=== PATIENT | female | born 1995 | race Hispanic/Latino ===

== ENCOUNTER 2024-10-19 11:16 | Emergency (ER) | payer OTHER ==
[~2024-10-19] VITALS: Ht 149.9 cm; Wt 60.4 kg
[2024-10-19] MEDS ORDERED: SYNT88TA2 PO (11:31)
[2024-10-19 11:56] LABS: BASO % 0.6 % (0.0-1.0); EOS # 0.1 10^3/uL (0.0-0.5); EOS % 0.8 % (0.0-3.0); HEMATOCRIT 42.8 % (36.0-47.0); HEMOGLOBIN 14.2 g/dl (12.0-15.5); LYMPH # 2.1 10^3/uL (1.5-5.0); LYMPH % 32.4 % (24.0-44.0); MEAN CORPUSCULAR HEMOGLOBIN 29.9 pg (27.0-33.0); MEAN CORPUSCULAR HGB CONC 33.2 g/dl (32.0-36.5); MEAN CORPUSCULAR VOLUME 90.1 fl (80.0-96.0); MONO # 0.4 10^3/uL (0.0-0.8); MONO % 6.6 % (2.0-8.0); NEUTROPHILS # 3.8 10^3/uL (1.5-8.5); NEUTROPHILS % 59.4 % (36.0-66.0); PLATELET COUNT, AUTOMATED 346 10^3/uL (150-450); RED BLOOD COUNT 4.75 10^6/uL (4.00-5.40); WHITE BLOOD COUNT 6.4 10^3/uL (4.0-10.0)
[2024-10-19 12:21] LABS: CK-MB VALUE MASS < 1.0 NG/ML (<3.6); LIPASE 27 U/L (12-53)
[2024-10-19 12:23] LABS: CPK CREATINE PHOSPHOKINASE 47 U/L (34-145); MB/CK RELATIVE INDEX 2.12 (< OR =4)
[2024-10-19 12:24] LABS: ALBUMIN 3.6 G/DL (3.2-5.2); ALKALINE PHOSPHATASE 92 U/L (35-104); ALT/SGPT 15 U/L (7.0-40); AST/SGOT 9 U/L (<34); BILIRUBIN,DIRECT 0.1 MG/DL (<0.4); BILIRUBIN,TOTAL 0.5 MG/DL (0.3-1.2); BLOOD UREA NITROGEN 9 MG/DL (9-23); CALCIUM LEVEL 9.8 MG/DL (8.5-10.1); CARBON DIOXIDE LEVEL 31 MMOL/L (20-31); CHLORIDE LEVEL 105 MMOL/L (98-107); CREATININE FOR GFR 0.68 MG/DL (0.55-1.30); GLOMERULAR FILTRATION RATE > 60.0 (>60); GLUCOSE, FASTING 78 MG/DL (60-100); POTASSIUM SERUM 4.2 MMOL/L (3.5-5.1); SODIUM LEVEL 142 MMOL/L (136-145); TOTAL PROTEIN 7.2 G/DL (5.7-8.2)
[2024-10-19 12:39] LABS: HCG, SERUM QUALITATIVE NEGATIVE (NEGATIVE)
[2024-10-19] MEDS: KETOROLAC 30 MG/ML 1ML VIAL IV ONE (16:35)
[2024-10-19 16:43] LABS: CK-MB VALUE MASS < 1.0 NG/ML (<3.6)
[2024-10-19 16:44] LABS: CPK CREATINE PHOSPHOKINASE 37 U/L (34-145)
[2024-10-19] MEDS ORDERED: IBUP-1022 PO (17:51)
[2024-10-19 18:13] VITALS: BP 106/73; TEMP 98.6; O2SAT 96
== END 2024-10-19 18:16 | disposition home or self-care (01) ==
LOC: M ED 11:16
DX: M94.0 Chondrocostal junction syndrome [Tietze] (principal)
CPT/HCPCS: 71046; 80048; 80076; 82550; 82553; 83690; 83735; 84484; 84702; 84703; 85025; 85379; 87486; 87581; 87633; 87798; 93005; 93971; 96374; 99284; J1885

== ENCOUNTER 2024-11-16 13:12 | Emergency (ER) | payer OTHER ==
[~2024-11-16] VITALS: Ht 149.9 cm; Wt 60.0 kg
[~2024-11-16 13:12] MED LIST: IBUP-1022 PO; SYNT88TA2 PO
[2024-11-16] MEDS ORDERED: IBUP-1022 PO (13:47)
[2024-11-16 13:57] LABS: HEMATOCRIT 40.8 % (36.0-47.0); HEMOGLOBIN 13.8 g/dl (12.0-15.5); MEAN CORPUSCULAR HEMOGLOBIN 30.5 pg (27.0-33.0); MEAN CORPUSCULAR HGB CONC 33.8 g/dl (32.0-36.5); MEAN CORPUSCULAR VOLUME 90.1 fl (80.0-96.0); PLATELET COUNT, AUTOMATED 331 10^3/uL (150-450); RED BLOOD COUNT 4.53 10^6/uL (4.00-5.40); WHITE BLOOD COUNT 7.4 10^3/uL (4.0-10.0)
[2024-11-16 14:20] LABS: ALBUMIN 3.4 G/DL (3.2-5.2); ALKALINE PHOSPHATASE 99 U/L (35-104); ALT/SGPT 20 U/L (7.0-40); AST/SGOT 16 U/L (<34); BILIRUBIN,DIRECT 0.1 MG/DL (<0.4); BILIRUBIN,TOTAL 0.4 MG/DL (0.3-1.2); BLOOD UREA NITROGEN 12 MG/DL (9-23); CALCIUM LEVEL 9.4 MG/DL (8.5-10.1); CARBON DIOXIDE LEVEL 28 MMOL/L (20-31); CHLORIDE LEVEL 105 MMOL/L (98-107); CREATININE FOR GFR 0.71 MG/DL (0.55-1.30); GLOMERULAR FILTRATION RATE > 90.0 (>60); GLUCOSE, FASTING 90 MG/DL (60-100); POTASSIUM SERUM 4.4 MMOL/L (3.5-5.1); SODIUM LEVEL 142 MMOL/L (136-145); TOTAL PROTEIN 7.1 G/DL (5.7-8.2)
[2024-11-16 14:22] LABS: THYROID STIMULATING HORMONE 1.507 uIU/ML (0.55-4.78); THYROXINE (T4) 11.2 UG/DL (4.5-10.9)
[2024-11-16 14:25] LABS: FREE THYROXINE INDEX 3.9 % (1.3-4.8); T UPTAKE 34.5 % (22.5-37.0)
[2024-11-16] MEDS: KETOROLAC 30 MG/ML 1ML VIAL IM ONE (14:27)
[2024-11-16 15:03] VITALS: BP 110/71; TEMP 97.7; O2SAT 100
== END 2024-11-16 15:06 | disposition home or self-care (01) ==
LOC: M ED 13:12
DX: G44.209 Tension-type headache, unspecified, not intractable (principal); E03.9 Hypothyroidism, unspecified; Z79.890 Hormone replacement therapy
CPT/HCPCS: 70450; 80048; 80076; 84436; 84443; 84479; 85027; 96372; 99283; J1885

== ENCOUNTER → 2024-12-12 | Outpatient (CLI) | payer OTHER | LOC: M PLAIMG 11:41 | PROVIDERS: ATTEND Nurse Practitioner Adult Health | DX: M26.602 Left temporomandibular joint disorder, unspecified (principal) ==

== ENCOUNTER 2025-03-10 09:19 | Emergency (ER) | payer OTHER ==
[~2025-03-10] VITALS: Ht 149.9 cm; Wt 62.5 kg
[~2025-03-10 09:19] MED LIST changes: +NAPR-837 PO
[2025-03-10] MEDS ORDERED: META-10 (09:26)
[2025-03-10 10:21] LABS: BASO # 0.0 10^3/uL (0.0-0.2); BASO % 0.7 % (0.0-1.0); EOS # 0.1 10^3/uL (0.0-0.5); EOS % 3.2 % (0.0-3.0); LYMPH # 1.7 10^3/uL (1.5-5.0); LYMPH % 41.5 % (24.0-44.0); MONO # 0.3 10^3/uL (0.0-0.8); MONO % 6.9 % (2.0-8.0); NEUTROPHILS # 1.9 10^3/uL (1.5-8.5); NEUTROPHILS % 47.7 % (36.0-66.0); PLATELET COUNT, AUTOMATED 297 10^3/uL (150-450)
[2025-03-10] MEDS: NS (Normal Saline) 0.9% 1,000 ML IV ONE (10:34)
[2025-03-10] MEDS: KETOROLAC 30 MG/ML 1 ML VIAL IV ONE (10:34)
[2025-03-10] MEDS: ONDANSETRON 4MG 2ML VIAL IV ONE (10:34)
[2025-03-10 10:43] LABS: KETONE, URINE AUTO RFX NEGATIVE (NEGATIVE); LEUKOCYTE ESTERASE UR AUTO RFX NEGATIVE (NEGATIVE); MUCUS, URINE RFX SMALL (NEGATIVE); NITRITE, URINE AUTO RFX NEGATIVE (NEGATIVE); RBC, URINE AUTO RFX 0 /HPF (0-3); SQUAM EPITHELIAL CELL UR AURFX 1 /HPF (0-6); WBC, URINE AUTO RFX 1 /HPF (0-3)
[2025-03-10 10:57] LABS: HCG, SERUM QUALITATIVE NEGATIVE (NEGATIVE)
[2025-03-10 11:05] LABS: ALT/SGPT 19 U/L (7.0-40); AST/SGOT 23 U/L (<34); CALCIUM LEVEL 9.2 MG/DL (8.5-10.1); CARBON DIOXIDE LEVEL 26 MMOL/L (20-31); CHLORIDE LEVEL 105 MMOL/L (98-107); CREATININE FOR GFR 0.60 MG/DL (0.55-1.30); GLOMERULAR FILTRATION RATE > 90.0 (>60); POTASSIUM SERUM 4.3 MMOL/L (3.5-5.1); SODIUM LEVEL 142 MMOL/L (136-145)
[2025-03-10] MEDS ORDERED: ONDA-282 PO (12:24)
[2025-03-10 12:36] VITALS: BP 109/72; TEMP 96.7; O2SAT 98
== END 2025-03-10 12:37 | disposition home or self-care (01) ==
LOC: M ED 09:19
DX: A09 Infectious gastroenteritis and colitis, unspecified (principal); E03.9 Hypothyroidism, unspecified; Z79.899 Other long term (current) drug therapy
CPT/HCPCS: 80048; 80076; 81001; 83690; 84703; 85025; 87507; 96361; 96374; 96375; 99284; J1885; J2405

== ENCOUNTER → 2025-04-02 | Outpatient (CLI) | payer OTHER ==
[~2025-04-02] MED LIST changes: -IBUP-1022 PO; +IBUP600T42 PO; +MAAL10003 PO; +META-10; +OMEP40CA4 PO; +ONDA-282 PO; +SUCR1TA PO; +SULF1TAB23 PO
== END ==
LOC: M PLAIMG 10:54
PROVIDERS: ATTEND Nurse Practitioner Adult Health
DX: R10.12 Left upper quadrant pain (principal)

== ENCOUNTER 2025-04-07 08:30 | Emergency (ER) | payer OTHER ==
[~2025-04-07] VITALS: Ht 149.9 cm; Wt 60.8 kg
[~2025-04-07 08:30] MED LIST changes: -MAAL10003 PO; -OMEP40CA4 PO; -SUCR1TA PO; -SULF1TAB23 PO
[2025-04-07 08:32] VITALS: TEMP 99.4
[2025-04-07 09:08] LABS: KETONE, URINE AUTO RFX NEGATIVE (NEGATIVE); MUCUS, URINE RFX SMALL (NEGATIVE); NITRITE, URINE AUTO RFX NEGATIVE (NEGATIVE); RBC, URINE AUTO RFX 1 /HPF (0-3); SQUAM EPITHELIAL CELL UR AURFX 4 /HPF (0-6)
[2025-04-07 09:09] LABS: BASO # 0.0 10^3/uL (0.0-0.2); BASO % 0.6 % (0.0-1.0); EOS # 0.1 10^3/uL (0.0-0.5); EOS % 2.7 % (0.0-3.0); LYMPH # 2.1 10^3/uL (1.5-5.0); LYMPH % 42.5 % (24.0-44.0); MONO # 0.3 10^3/uL (0.0-0.8); MONO % 6.6 % (2.0-8.0); NEUTROPHILS # 2.3 10^3/uL (1.5-8.5); NEUTROPHILS % 47.4 % (36.0-66.0); PLATELET COUNT, AUTOMATED 272 10^3/uL (150-450)
[2025-04-07 09:11] LABS: LEUKOCYTE ESTERASE UR AUTO RFX 1+ (NEGATIVE); WBC, URINE AUTO RFX 17 /HPF (0-3)
[2025-04-07 09:31] LABS: CALCIUM LEVEL 9.3 MG/DL (8.5-10.1); CARBON DIOXIDE LEVEL 26 MMOL/L (20-31); CHLORIDE LEVEL 104 MMOL/L (98-107); CREATININE FOR GFR 0.66 MG/DL (0.55-1.30); GLOMERULAR FILTRATION RATE > 90.0 (>60); POTASSIUM SERUM 4.0 MMOL/L (3.5-5.1); SODIUM LEVEL 141 MMOL/L (136-145)
[2025-04-07 09:40] LABS: HCG, SERUM QUALITATIVE NEGATIVE (NEGATIVE)
[2025-04-07] MEDS: PANTOPRAZOLE 40MG VIAL IV ONE (11:41)
[2025-04-07] MEDS: MAALOX 30 ML SUSP *UDC PO ONE (11:42)
[2025-04-07] MEDS: SUCRALFATE SUSP 1GM/10ML UD PO ONE (11:42)
[2025-04-07] MEDS: LIDOCAINE VISCOUS 2% SOLN 15 ML UDC PO ONE (11:42)
[2025-04-07] MEDS ORDERED: ISOVUE-370 76% 100 ML VIAL As Ordered ONE (11:47)
[2025-04-07 12:36] LABS: ALT/SGPT 21.0 U/L (7.0-40); AST/SGOT 34.0 U/L (<34)
[2025-04-07 12:57] VITALS: BP 112/71; O2SAT 99
[2025-04-07] MEDS ORDERED: SULF1TAB23 PO (13:07)
[2025-04-07] MEDS ORDERED: OMEP40CA4 PO (13:07)
[2025-04-07] MEDS ORDERED: SUCR1TA PO (13:07)
[2025-04-07] MEDS ORDERED: MAAL10003 PO (13:07)
== END 2025-04-07 13:19 | disposition home or self-care (01) ==
LOC: M ED 08:30
DX: R10.13 Epigastric pain (principal); K21.9 Gastro-esophageal reflux disease without esophagitis; E07.9 Disorder of thyroid, unspecified; Z79.899 Other long term (current) drug therapy
CPT/HCPCS: 74177; 80048; 80076; 81001; 83605; 84703; 85025; 87086; 93005; 96374; 99284; J2470; Q9967